=== PATIENT | female | born 1990 | race Caucasian/White ===

== ENCOUNTER 2017-07-23 17:57 | Emergency (ER) | payer OTHER, SELFPAY ==
[2017-07-23 17:58] VITALS: BP 130/93; PULSE 77; RESP 18; TEMP 36.8; O2SAT 99; BMI 25.2
--- NOTE | 2017-07-23 17:59 | NURSING ---
NO OLD EKGS
--- NOTE | 2017-07-23 18:22 | EKG12_ITS ---
Test Reason : SYNCOPE Blood Pressure : / mmHG Vent. Rate : 069 BPM Atrial Rate : 069 BPM P-R Int : 140 ms QRS Dur : 076 ms QT Int : 392 ms P-R-T Axes : 050 036 052 degrees QTc Int : 420 ms Normal sinus rhythm with sinus arrhythmia Low voltage QRS Borderline ECG Confirmed by FATEMEH CORONA, [place] ([id number]), newspaper editor managing [employer] ([id number]) on 07/27/2017 2:05:32 PM Referred By: TWILA Confirmed By:NJ WELDON MD
--- NOTE | 2017-07-23 18:22 | RAD_ITS ---
STUDY: X-RAY CHEST REASON FOR EXAM: Female, 27 years old. Syncopal episode. TECHNIQUE: Single AP portable view of the chest. COMPARISON: None. FINDINGS: The lungs are clear and expanded. There is no demonstrated pleural abnormality. Normal size heart. Normal mediastinum and farnaz. Normal visualized pulmonary arteries. Normal visualized aortic arch and descending thoracic aorta. There is a 6 degree dextroscoliosis of the thoracic spine centered at T9-10. Normal visualized ribs, clavicles, and shoulders. There is no demonstrated abnormality of the visualized soft tissue structures of the upper abdomen. RAD/Chest 1 View (Portable) IMPRESSION: No acute cardiopulmonary disease. Electronically Signed: Kemar Mills MD at 19:26 EDT , Service support ,
--- NOTE | 2017-07-23 18:28 | ED.DCSUM_ITS ---
- ER Visit Summary Date of Service: 07/23/17 Chief Complaint: Passed out History of Present Illness: The patient is a 27 F no significant past medical history. 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 She was picking up her paycheck and did rojo today. She was talking to someone and had a syncopal event. States before it happened she said she got tunnel vision but other than that she felt fine. She denied any headache, chest pain, shortness of breath, abdominal pain. She has had no recent nausea, vomiting, diarrhea. Her last menstrual period was approximately 1 month ago she is currently not late nor she having any vaginal bleeding or melena. She denies any fever. She states she has had 2 prior episodes where she passed out without diagnosis. Currently she states she feels well. Physical Examination: Well-appearing young female. Vital signs are stable afebrile. Pulse ox 90% room air no signs of hypoxia. HEENT exam normal. There are no signs of trauma to her face or scalp. Pupils round reactive light. Motions are intact. Normal speech no facial droop. C-spine nontender normal range of motion. Back nontender. Lungs clear to auscultation bilaterally. Heart regular rate and rhythm no murmur. Rate about 75. Abdomen soft nontender normal bowel sounds. Pelvic girdle intact. Extremities moving no bony tenderness. Neurologically she is awake and alert with no focal motor deficits. There are no signs of a recent seizure nor any biting of her tongue. Test Results: CBC normal with a white count of 9. Normal H&H. BMP unremarkable. Normal BUN, creatinine and gap. Normal blood sugar. EKG sinus rhythm rate is 69. No dysrhythmia. Chest x-ray normal. Emergency Department Course and Treatment: She with a syncopal event. Treatment Plan: Repeat exam patient is doing well at 2055. Exam unchanged. I went over all test results with her and her . Explained we do not have a specific cause for why she passed out. Disposition: Discharge Impression: Acute syncope of uncertain etiology This note was generated with [employer] dictation software. It may contain incorrect words, spelling, and punctuation that were not noted in review of the chart prior to signing ED Disposition - Plan for ED Patient: Chief Complaint: Syncope Referrals: Michael Monk DO [Primary Care Provider] -
[2017-07-23 18:47] LABS: Absolute Lymphocyte Count 2.67 X10^3/ul (0.83-4.51); Absolute Neutrophil Count 5.8 X10^3/uL (2.0-7.7); Basophil# 0.03 X10^3/uL; Basophil% 0.3 % (0-1); Eosinophil# 0.11 X10^3/uL; Eosinophils% 1.2 % (0-5); Hematocrit 37.5 % (37-47); Hemoglobin 13.2 g/dl (12.0-15.0); Lymphocyte # 2.67 X10^3/ul (4.0); Mean Corp Hgb Conc 35.2 g/gl (32-36); Mean Corpuscular Hgb 30.4 pg (27.0-32.0); Mean Corpuscular Volume 86.4 fL (81-99); Mean Platelet Vol. 10.4 fl (6.2-12.0); Monocyte# 0.56 X10^3/uL; Monocyte% 6.1 % (0-10); Neutrophil # 5.83 X10^3/uL (2.7-7.7); Neutrophil % 63.2 % (47-70); Platelet Count 235 K/mm3 (150-450); RBC Distribution Width CV 12.6 % (11.6-14.6); Red Blood Count 4.34 M/mm3 (4.2-5.4); White Blood Count 9.2 K/mm3 (4.4-11.0)
[2017-07-23 18:49] LABS: POSITIVE COUNT NO; POSITIVE DIFFERENTIAL NO; POSITIVE MORPHOLOGY NO
[2017-07-23 18:55] LABS: Anion Gap 7 (5-15); BUN 14 mg/dL (7-18); Calcium,Total 8.2 mg/dL (8.5-10.1); Chloride 109 mmol/L (98-107); Creatinine, Serum 0.88 mg/dL (0.55-1.02); EST Glomerular Filtration Rate 82 mL/min (>60); Est Glom Filt Rate - Afr Amer 99 mL/min (>60); Glucose 99 mg/dL (74-106); Potassium 3.8 mmol/L (3.5-5.1); Sodium Level 139 mmol/L (136-145)
[2017-07-23 19:02] VITALS: BP 130/93; BP 132/88; BP 132/91; PULSE 76; PULSE 77; PULSE 78
--- NOTE | 2017-07-23 20:59 | ED.DEP ---
ED Disposition - Plan for ED Patient: Disposition: Home or Assisted Living Chief Complaint: Syncope Instructions: ED Fainting Unkn Cause Referrals: Michael Monk DO [Primary Care Provider] - As soon as possible Additional Instructions: Call follow-up your doctor. All your testing tonight including a blood count, electrolytes, blood sugar, kidney function, EKG, chest x-ray and vital signs including blood pressure all were normal tonight.
[2017-07-23 21:19] VITALS: BP 122/78; PULSE 83; RESP 18; O2SAT 98
== END 2017-07-23 21:21 | disposition home or self-care (01) ==
PROVIDERS: Emergency Provider Emergency Medicine; Family Provider Family Medicine; PCP Family Medicine
DX: R55 Syncope and collapse (principal)
CPT/HCPCS: 71045; 80048; 85025; 93005; 99285; J7030; A4216

== ENCOUNTER → 2017-11-10 09:58 | Outpatient (CLI) | payer OTHER, SELFPAY ==
[2017-11-10 12:41] LABS: Hemoglobin A1c 5.1 % (4.2-6.3)
[2017-11-10 12:45] LABS: Homocysteine 6.8 umol/L (3.2-10.7)
[2017-11-16 14:07] LABS: CHOLESTEROL TOTAL 157 mg/dL (100-199); HDL-C 55 mg/dL (>39); HDL-P TOTAL 31.4 umol/L (>=30.5); SMALL LDL-P 134 nmol/L (<=527); TRIGLYCERIDES 47 mg/dL (0-149)
[2017-11-17 13:40] LABS: LDL SIZE 21.9 nm (>20.5); LDL-C 93 mg/dL (0-99); LDL-P 897 nmol/L (<1000); LP-IR SCORE ** <25 (<=45)
== END ==
PROVIDERS: Family Provider Family Medicine; PCP Family Medicine; Visit Provider Family Medicine
DX: R55 Syncope and collapse (principal); R00.2 Palpitations; E16.2 Hypoglycemia, unspecified; E78.4 Other hyperlipidemia
CPT/HCPCS: 36415; 80061; 83036; 83090; 83695; 83704

== ENCOUNTER → 2017-11-20 09:04 | Outpatient (CLI) | payer OTHER, SELFPAY ==
[2017-11-24 11:54] LABS: Lipoprotein A 139 nmol/L (<75)
== END ==
PROVIDERS: Family Provider Family Medicine; PCP Family Medicine; Visit Provider Family Medicine
DX: R55 Syncope and collapse (principal); R00.2 Palpitations; E16.2 Hypoglycemia, unspecified; E78.4 Other hyperlipidemia
CPT/HCPCS: 83695

== ENCOUNTER → 2017-12-23 09:16 | Outpatient (CLI) | payer OTHER, SELFPAY ==
--- NOTE | 2017-12-23 09:45 | ECHOD_ITS ---
Reason For Study: Syncope Procedure This was a 2D Doppler, Color Flow transthoracic echocardiogram. Exam performed in department. Left Ventricle Normal size and thickness. The estimated ejection fraction is 65 %. Normal diastology for age. No regional wall motion abnormalities noted. Right Ventricle Normal size and thickness. Normal systolic function. Atria Normal left atrium. Normal right atrium. Normal atrial septum. Mitral Valve The mitral valve is structurally normal. No prolapse or stenosis seen. Tricuspid Valve Normal tricuspid valve. Trivial tricuspid valve insufficiency. Right ventricular systolic pressure estimated to be 17 mmHg. Aortic Valve Normal aortic valve. Trisinus/trileaflet aortic valve. Pulmonic Valve Normal pulmonic valve. Great Vessels Normal aortic root. Normal arch. Normal inferior vena cava. Inferior vena cava collapse with sniff. Pericardium/Pleural No pericardial effusion. MMode/2D Measurements & Calculations LVIDd: 4.4 cm IVSd: 0.77 cm LVOT diam: 2.0 cm LVIDs: 3.1 cm LVPWd: 0.73 cm LVOT area: 3.1 cm2 FS: 28.4 % Ao root diam: 3.0 cm LAV(MOD-bp): 39.9 ml LVAd ap4: 26.7 cm2 LA dimension: 2.8 cm LAV(MOD-bp) Indexed: 22.5 ml/m2 EDV(MOD-sp4): 80.5 ml LAV(MOD-sp2): 41.4 ml EDV(sp4-el): 82.3 ml LAV(MOD-sp4): 36.0 ml LVAs ap4: 16.9 cm2 ESV(MOD-sp4): 39.1 ml ESV(sp4-el): 39.2 ml EF(MOD-sp4): 51.4 % EF(sp4-el): 52.4 % SV(MOD-sp4): 41.4 ml SV(sp4-el): 43.1 ml LA A4 area: 15.5 cm2 RA A4 area: 14.0 cm2 Time Measurements MV dec time: 0.16 sec Doppler Measurements & Calculations MV E max toribio: 75.9 cm/sec Lat Peak E' Toribio: 14.6 cm/sec Med Peak E' Toribio: 11.4 cm/sec MV A max toribio: 78.5 cm/sec E/E' lat: 5.2 E/E' med: 6.7 MV E/A: 0.97 MV V2 max: 87.7 cm/sec MV P1/2t max toribio: 88.8 cm/sec Ao V2 max: 102.7 cm/sec MV max P.1 mmHg MV P1/2t: 103.3 msec Ao max P.2 mmHg MV V2 mean: 50.2 cm/sec MV dec slope: 251.7 cm/sec2 Ao V2 mean: 71.1 cm/sec MV mean P.2 mmHg MVA(P1/2t): 2.1 cm2 Ao mean P.3 mmHg MV V2 VTI: 26.5 cm Ao V2 VTI: 23.0 cm MVA(VTI): 2.5 cm2 ROCCO(I,D): 2.9 cm2 ROCCO(V,D): 3.0 cm2 LV V1 max: 100.0 cm/sec SV(LVOT): 67.0 ml PA V2 max: 70.6 cm/sec LV V1 max P.0 mmHg LV V1 mean P.0 mmHg LV V1 mean: 65.4 cm/sec LV V1 VTI: 21.8 cm TR max toribio: 177.0 cm/sec TR max P.5 mmHg Interpretation Summary The estimated ejection fraction is 65 %. Normal diastology for age. Trivial tricuspid valve insufficiency. Right ventricular systolic pressure estimated to be 17 mmHg. There is no comparison study available. Ordering Physician: Helio Campbell Referring Physician: Michael Monk Performed By: Navjot Plasencia RCS
[2017-12-23 10:12] LABS: AST(SGOT) 10 U/L (15-37); Alanine Aminotransfer ALT/SGPT 19 U/L (13-56); Alkaline Phosphatase 50 U/L (45-117); Bilirubin, Direct 0.21 mg/dL (0.00-0.30); Cholesterol 164 mg/dL (200); Globulin 3.5 g/dL (2.2-4.2); High Density Lipoprotein 63 mg/dL; Protein, Total 7.5 g/dL (6.4-8.2); Triglycerides 37 mg/dL; Very Low Density Lipoprotein 7 mg/dL (5-40)
[2017-12-31 03:08] LABS: Dilute Prothrombin Time (dPT) 50.5 sec (0.0-55.0); Dilute Russell Viper Venom 33.4 sec (0.0-47.0); Protein C Antigen 110 % (60-150); Protein C, Functional 123 % (73-180); Thrombin Time 17.3 sec (0.0-23.0); dPT Confirm Ratio 0.97 Ratio (0.00-1.40)
[2017-12-31 09:43] LABS: Antithrombin 3 Function 124 % (75-135); Interpretation Comment: (.); Protein S, Free 120 % (57-157); Protein S, Funtional 98 % (63-140); Protein S, Total 67 % (60-150)
== END ==
PROVIDERS: Family Provider Family Medicine; PCP Family Medicine; Referring Provider Internal Medicine Cardiovascular Disease; Visit Provider Internal Medicine Cardiovascular Disease
DX: R06.09 Other forms of dyspnea (principal); R55 Syncope and collapse; G47.10 Hypersomnia, unspecified; Z83.2 Family history of diseases of the blood and blood-forming organs and certain disorders involving the immune mechanism
CPT/HCPCS: 36415; 80061; 80076; 81241; 85300; 85302; 85303; 85305; 85306; 93306

== ENCOUNTER → 2017-12-23 09:46 | Outpatient (REF) | payer OTHER, SELFPAY | LOC: CVS 09:46 | PROVIDERS: Family Provider Family Medicine; PCP Family Medicine; Referring Provider Internal Medicine Cardiovascular Disease; Visit Provider Internal Medicine Cardiovascular Disease | DX: R55 Syncope and collapse (principal) | CPT/HCPCS: 93270 ==

== ENCOUNTER → 2017-12-28 16:32 | Outpatient (CLI) | payer OTHER, SELFPAY ==
[2017-12-31 15:52] LABS: HPV Reflexed? NOT INDICATED
== END ==
PROVIDERS: Family Provider Family Medicine; PCP Family Medicine; Referring Provider Obstetrics & Gynecology; Visit Provider Obstetrics & Gynecology
DX: N92.6 Irregular menstruation, unspecified (principal); N93.0 Postcoital and contact bleeding; N94.6 Dysmenorrhea, unspecified; Z12.4 Encounter for screening for malignant neoplasm of cervix
CPT/HCPCS: 87070; 87205; 88175; G0145

== ENCOUNTER → 2019-03-31 11:57 | Outpatient (CLI) | payer OTHER, SELFPAY | PROVIDERS: PCP Family Medicine; Visit Provider Family Medicine | DX: N30.00 Acute cystitis without hematuria (principal) | CPT/HCPCS: 87077; 87086; 87088; 87186 ==

== ENCOUNTER 2021-08-19 15:27 | Outpatient (CLI) | payer OTHER, SELFPAY ==
[2021-08-25 16:08] LABS: Dilute Prothrombin Time (dPT) 36.8 sec (0.0-47.6); Dilute Russell Viper Venom 34.8 sec (0.0-47.0); PTT-LA 32.1 sec (0.0-51.9); Protein C Antigen 84 % (60-150); Protein C, Functional 112 % (73-180); Protein S, Free 106 % (61-136); dPT Confirm Ratio 1.07 Ratio (0.00-1.34)
[2021-08-25 18:13] LABS: Antithrombin 3 Function 113 % (75-135); Interpretation Comment: (.); Protein S, Funtional 79 % (63-140); Protein S, Total 91 % (60-150)
== END 2021-08-19 23:59 | disposition home or self-care (01) ==
LOC: PAVLAB 15:27
PROVIDERS: PCP Family Medicine; Referring Provider Obstetrics & Gynecology; Visit Provider Obstetrics & Gynecology
DX: N93.0 Postcoital and contact bleeding (principal); Z83.2 Family history of diseases of the blood and blood-forming organs and certain disorders involving the immune mechanism
CPT/HCPCS: 36415; 81241; 85300; 85302; 85303; 85305; 85306

== ENCOUNTER → 2023-01-12 | Outpatient (CLI) | payer BC, SELFPAY ==
[2023-01-12 12:10] LABS: Absolute Neutrophil Count 3.7 X10^3/uL (2.0-7.7); Basophil# 0.06 X10^3/uL; Basophil% 0.9 % (0-1); Eosinophil# 0.15 X10^3/uL; Eosinophils% 2.2 % (0-5); Hematocrit 40.3 % (37-47); Lymphocyte % 35.6 % (19-41); Mean Corp Hgb Conc 32.3 g/dL (32-36); Mean Corpuscular Hgb 28.3 pg (27.0-32.0); Mean Corpuscular Volume 87.6 fL (81-99); Mean Platelet Vol. 10.8 fl (6.2-12.0); Monocyte# 0.39 X10^3/uL; Monocyte% 5.8 % (0-10); NRBC Flagged by Analyzer 0 % (0-5); Neutrophil # 3.72 X10^3/uL (2.7-7.7); Neutrophil % 55.2 % (47-70); Platelet Count 330 K/mm3 (150-450); RBC Distribution Width CV 13.5 % (11.6-14.6); RBC Distribution Width SD 43.2 fl (35.1-43.9); White Blood Count 6.7 K/mm3 (4.4-11.0)
[2023-01-12 12:47] LABS: ALB/GLOB Ratio 0.9 RATIO (0.9-2.4); AST(SGOT) 9 U/L (15-37); Alanine Aminotransfer ALT/SGPT 21 U/L (13-56); Albumin, Serum 3.5 g/dL (3.2-5.0); Alkaline Phosphatase 62 U/L (45-117); Anion Gap 2 (5-15); BUN 12 mg/dL (7-18); Calcium,Total 8.8 mg/dL (8.5-10.1); Chloride 105 mmol/L (98-107); Cholesterol 184 mg/dL (200); EST Glomerular Filtration Rate 88 mL/min (>60); Est Glom Filt Rate - Afr Amer 106 mL/min (>60); Globulin 3.8 g/dL (2.2-4.2); Glucose 82 mg/dL (74-106); High Density Lipoprotein 60 mg/dL; Potassium 4.1 mmol/L (3.5-5.1); Protein, Total 7.3 g/dL (6.4-8.2); Sodium Level 133 mmol/L (136-145); Thyroid Stim Hormone (TSH) 2.53 uIU/mL (0.358-3.74); Triglycerides 53 mg/dL; Very Low Density Lipoprotein 11 mg/dL (5-40)
== END | disposition home or self-care (01) ==
LOC: BFHLAB 08:42
PROVIDERS: PCP Family Medicine; Referring Provider Family Medicine; Visit Provider Family Medicine
DX: Z00.00 Encounter for general adult medical examination without abnormal findings (principal)
CPT/HCPCS: 36415; 80053; 80061; 84443; 85025

== ENCOUNTER → 2023-01-26 | Outpatient (CLI) | payer BC, SELFPAY ==
[2023-01-30 14:09] LABS: HPV APTIMA, High Risk Negative (Negative)
== END | disposition home or self-care (01) ==
LOC: LAB 16:56
PROVIDERS: PCP Family Medicine; Visit Provider Obstetrics & Gynecology
DX: Z12.4 Encounter for screening for malignant neoplasm of cervix (principal)
CPT/HCPCS: 87624; 88175; G0145

== ENCOUNTER → 2023-01-27 | Outpatient (CLI) | payer BC, SELFPAY | END | disposition home or self-care (01) | PROVIDERS: PCP Family Medicine; Referring Provider Obstetrics & Gynecology; Visit Provider Obstetrics & Gynecology | DX: Z00.00 Encounter for general adult medical examination without abnormal findings (principal) ==

== ENCOUNTER → 2024-04-27 | Outpatient (CLI) | payer BC, SELFPAY ==
[2024-04-27 12:23] LABS: Absolute Lymphocyte Count 2.02 X10^3/uL (0.83-4.51); Absolute Neutrophil Count 3.5 X10^3/uL (2.0-7.7); Basophil# 0.06 X10^3/uL; Eosinophil# 0.08 X10^3/uL; Eosinophils% 1.3 % (0-5); Hematocrit 40.9 % (37-47); Hemoglobin 13.3 g/dL (12.0-15.0); Lymphocyte # 2.02 X10^3/ul (0.83-4.51); Lymphocyte % 32.9 % (19-41); Mean Corp Hgb Conc 32.5 g/dL (32-36); Mean Corpuscular Hgb 28.4 pg (27.0-32.0); Mean Corpuscular Volume 87.4 fL (81-99); Monocyte# 0.42 X10^3/uL; Monocyte% 6.8 % (0-10); NRBC Flagged by Analyzer 0 % (0-5); Neutrophil # 3.54 X10^3/uL (2.7-7.7); Neutrophil % 57.7 % (47-70); Platelet Count 371 K/mm3 (150-450); RBC Distribution Width CV 13.2 % (11.6-14.6); RBC Distribution Width SD 42.5 fl (35.1-43.9); Red Blood Count 4.68 M/mm3 (4.2-5.4); White Blood Count 6.1 K/mm3 (4.4-11.0)
[2024-04-27 12:57] LABS: AST(SGOT) 11 U/L (15-37); Alanine Aminotransfer ALT/SGPT 13 U/L (13-56); Albumin, Serum 3.8 g/dL (3.2-5.0); Alkaline Phosphatase 66 U/L (45-117); Anion Gap 7 (5-15); BUN 8 mg/dL (7-18); BUN/Creat Ratio 8.9 RATIO (10-20); Calcium,Total 9.6 mg/dL (8.5-10.1); Chloride 106 mmol/L (98-107); EST Glomerular Filtration Rate 76 mL/min (>60); Est Glom Filt Rate - Afr Amer 92 mL/min (>60); Globulin 3.8 g/dL (2.2-4.2); Glucose 76 mg/dL (74-106); Potassium 3.8 mmol/L (3.5-5.1); Protein, Total 7.6 g/dL (6.4-8.2); Sodium Level 138 mmol/L (136-145)
== END | disposition home or self-care (01) ==
LOC: BFHLAB 10:11
PROVIDERS: PCP Family Medicine; Visit Provider Family Medicine
DX: Z00.00 Encounter for general adult medical examination without abnormal findings (principal)
CPT/HCPCS: 36415; 80053; 85025

== ENCOUNTER → 2024-07-27 | Outpatient (CLI) | payer BC, SELFPAY ==
--- NOTE | 2024-07-27 13:53 | BI_ITS ---
EXAM: DIAG MAMM W/CAD, BILAT 07/27/2024 CLINICAL HISTORY: F, Age 34 y/o , RIGHT BREAST MASS TECHNIQUE: Bilateral Diagnostic digital breast tomosynthesis with 2D and 3D images. Computer aided detection. COMPARISON: Baseline examination. FINDINGS: TISSUE DENSITY: The breast tissue is extremely dense which lowers the sensitivity of mammography. Bilateral Breast Mammographic Findings: No significant masses, calcifications or other abnormalities are identified. Questionable 9.6 mm well-defined nodule in the upper lateral aspect of the right breast. Sonographic correlation recommended BI/DIAG MAMM W/CAD, BILAT IMPRESSION: OVERALL FINAL ASSESSMENT: BIRADS 0 Incomplete: Need additional imaging evaluati on and/or prior mammograms for comparison.. RECOMMENDATION: Sonographic correlation recommended. A letter with findings and recommendations will be mailed to the patient. Reading Location: [id number]
--- NOTE | 2024-07-27 13:53 | US_ITS ---
PROCEDURE: BREAST LIMITED UNILATERAL REASON FOR EXAM: RIGHT BREAST MASS TECHNIQUE: Targeted right breast ultrasound. COMPARISON: Prior mammogram done earlier in the day. FINDINGS: Right breast ultrasound was targeted to the upper-outer quadrant.. There is a 6 mm x 6 mm x 5 mm cyst at the 12 o'clock position of the breast at 8 cm from the nipple. US/Breast Limited Unilateral IMPRESSION: 6 mm x 6 mm x 5 mm cyst at the 12 o'clock position of the breast at 8 cm from t he nipple. Follow-up code: BI-RADS category 2. Reading Location: [id number]
== END | disposition home or self-care (01) ==
PROVIDERS: PCP Family Medicine; Referring Provider Obstetrics & Gynecology; Visit Provider Obstetrics & Gynecology
DX: N60.01 Solitary cyst of right breast (principal)
CPT/HCPCS: 76642; 77062; 77066; G0279